=== PATIENT | female | born 1980 | race Caucasian/White ===

== ENCOUNTER 2017-03-01 07:57 | Day surgery (SDC) | payer BC ==
[~2017-03-01 07:57] MED LIST: Dexamethasone 4 MG/ML 5 ML MDV ONE; Lactated Ringers 1,000 ML IV SCH; Lidocaine 1% 20 ML MDV ONE; Midazolam 1 MG/ML 2 ML SDV ONE; Ondansetron 4 MG/2 ML SDV ONE; Propofol 200 MG/20 ML SDV ONE; ceFAZolin 2 GM in Premix Bag 1 BAG IV SCH; fentaNYL 100 MCG/2 ML SDV ONE
[2017-03-01] MEDS ORDERED: Acetaminophen/HYDROcodone 325-5 MG Tab PO PRN (08:00)
--- NOTE | 2017-03-01 09:12 | PCM.PREANE ---
Preanesthetic Assessment - Anesthesia/Transfusion/Family Hx Anesthesia History: Prior Anesthesia Without Reaction Other Type of Anesthesia Reaction Comment: Denies any known problems in past Family History of Anesthesia Reaction: No Transfusion History: No Prior Transfusion(s) - Review of Systems Pulmonary: No Symptoms Cardiovascular: No Symptoms Gastrointestinal: No Symptoms, Other (reflux symptoms controlled on medication but hasn't taken today) Other: Reports: None - Physical Assessment NPO Status Date: 02/28/17 NPO Status Time: 22:00 O2 Sat by Pulse Oximetry: 96 Respiratory Rate: 16 Vital Signs: Last Vital Signs Temp 36.5 C 03/01/17 08:29 Pulse 77 03/01/17 08:29 Resp 16 03/01/17 08:29 BP 121/79 03/01/17 08:29 Pulse Ox 96 03/01/17 08:29 Height: 1.57 m Weight: 95.254 kg ASA Class: 2 Mental Status: Alert & Oriented x3 Dentition: Reports: Normal Dentition (missing tooth upper left) Thyro-Mental Finger Breadths: 3 Mouth Opening Finger Breadths: 2 ROM/Head Extension: Full Lungs: Clear to Auscultation Cardiovascular: Regular Rate - Allergies Allergies/Adverse Reactions: Allergies Allergy/AdvReac Type Severity Reaction Status Date / Time blueberry [Blueberry] Allergy Difficulty Verified 07/01/14 07:18 Breathing latex Allergy Difficulty Verified 07/01/14 07:18 Breathing Sulfa (Sulfonamide Allergy Difficulty Verified 07/01/14 07:18 Antibiotics) Breathing Tape adhesives Allergy Swelling Uncoded 07/01/14 07:18 - Acknowledgements Anesthesia Type Planned: General Anesthesia (patient prefers ga over spinal) Pt an Appropriate Candidate for the Planned Anesthesia: Yes Alternatives and Risks of Anesthesia Discussed w Pt/Guardian: Yes Pt/Guardian Understands and Agrees with Anesthesia Plan: Yes PreAnesthesia Questionnaire HEENT History: Reports: Other (See Below) Other HEENT History: wears glasses/contacts Cardiovascular History: Reports: None Respiratory History: Reports: None Gastrointestinal History: Reports: GERD Genitourinary History: Reports: Renal Calculus 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, Musculoskeletal History: Reports: Fibromyalgia Neurological History: Reports: None Psychiatric History: Reports: Anxiety Endocrine/Metabolic History: Reports: Hypothyroidism, Obesity/BMI 30+ Hematologic History: Reports: None Immunologic History: Reports: None Oncologic (Cancer) History: Reports: None Dermatologic History: Reports: None - Past Surgical History Head Surgeries/Procedures: Reports: None HEENT Surgical History: Reports: Tonsillectomy Female Surgical History: Reports: D&C, Hysterectomy, Tubal Ligation - SUBSTANCE USE Smoking Status *Q: Never Smoker Tobacco Use Within Last Twelve Months: No Second Hand Smoke Exposure: No Days Per Week of Alcohol Use: 2 Number of Drinks Per Day: 6 Total Drinks Per Week: 12 Recreational Drug Use History: No - HOME MEDS Home Medications: Home Meds Levothyroxine Sodium [Synthroid] 75 mcg PO ACBRK 02/25/14 [History] Vitamin B Complex 1 tab PO DAILY 05/08/14 [History] Acyclovir 1 tab PO ASDIRECTED PRN 02/15/16 [History] Omeprazole 20 mg PO DAILY 02/15/16 [History] Gluc/Timur-Msm#2/C/D3/Ronn/Born [Eoguqepqsr-Zjwzpveumts-MSW] 1 tab PO DAILY 02/22 [History] Phentermine HCl 37.5 mg PO ASDIRECTED 02/22/17 [History] - CURRENT (IN HOUSE) MEDS Current Meds: Current Medications Hydrocodone Bitart/Acetaminophen ([place] 325-5 Mg) 1 - 2 tab PO Q4H PRN PRN Reason: Pain Cefazolin Sodium/Dextrose 2 gm (/ Premix) 50 mls @ 100 mls/hr IV ONCALL NEGRO Lactated Ringer's (Ringers, Lactated) 1,000 mls @ 100 mls/hr IV ASDIRECTED [facility] Last Admin: 03/01/17 08:14 Dose: 100 mls/hr Discontinued Medications Dexamethasone (Dexamethasone) Confirm Administered Dose 20 mg .ROUTE .STK-MED ONE Stop: 03/01/17 07:23 Fentanyl (Sublimaze) Confirm Administered Dose 100 mcg .ROUTE .STK-MED ONE Stop: 03/01/17 07:22 Lidocaine HCl (Xylocaine-Mpf 1%) Confirm Administered Dose 5 ml .ROUTE .STK-MED ONE Stop: 03/01/17 07:23 Lidocaine HCl (Xylocaine 1%) Confirm Administered Dose 20 ml .ROUTE .STK-MED ONE Stop: 03/01/17 07:30 Midazolam HCl (Versed 1 Mg/Ml) Confirm Administered Dose 2 mg .ROUTE .STK-MED ONE Stop: 03/01/17 07:23 Ondansetron HCl (Zofran) Confirm Administered Dose 4 mg .ROUTE .STK-MED ONE Stop: 03/01/17 07:23 Propofol (Diprivan 20 Ml) Confirm Administered Dose 200 mg .ROUTE .STK-MED ONE Stop: 03/01/17 07:22
[2017-03-01] MEDS ORDERED: ceFAZolin 1 GM Vial ONE (09:51)
[2017-03-01] MEDS ORDERED: Succinylcholine/Normal Saline 200 MG/10 ML Syringe ONE (09:51)
[2017-03-01] MEDS ORDERED: Rocuronium 10 MG/ML 10 ML Syringe ONE (09:51)
[2017-03-01] MEDS ORDERED: fentaNYL 100 MCG/2 ML SDV ONE (10:11)
--- NOTE | 2017-03-01 10:26 | PCM.OPNOTE ---
- General Post-Op/Procedure Note Date of Surgery/Procedure: 03/01/17 Operative Procedure(s): Right knee arthroscopy with limited synovectomy Post-Op Diagnosis: R knee fat pad impingement Anesthesia Technique: General LMA Primary Surgeon: Kristy Davis Acetylene Operator: Ros Valero in mLs: 5 Condition: Good Free Text/Narrative:: tt=9 min #[id number]
[2017-03-01] MEDS: fentaNYL 100 MCG/2 ML SDV IVPUSH PRN ×2 (10:38→10:44)
--- NOTE | 2017-03-01 10:52 | PCM.POSTAN ---
POST ANESTHESIA ASSESSMENT - MENTAL STATUS Mental Status: Alert - RESPIRATORY Respiratory Status: Respiratory Rate WNL, Airway Patent, O2 Saturation Stable - CARDIOVASCULAR CV Status: Pulse Rate WNL, Blood Pressure Stable - GASTROINTESTINAL GI Status: Nauseau (slight but getting better) - PAIN Pain Score: 5 - POST OP HYDRATION Hydration Status: Adequate & Stable - OBSERVATIONS Free Text/Narrative:: Patient is doing well per RN and ready to go back to room
--- NOTE | 2017-03-01 11:39 | PCM48HPAN ---
Post Anesthesia Note - EVALUATION WITHIN 48HRS OF ANESTHETIC Vital Signs in Normal Range: Yes Patient Participated in Evaluation: Yes Respiratory Function Stable: Yes Airway Patent: Yes Cardiovascular Function Stable: Yes Hydration Status Stable: Yes Pain Control Satisfactory: No (Patient just medicated with po pain med per RN) Nausea and Vomiting Control Satisfactory: Yes Mental Status Recovered: Yes
[2017-03-01 12:35] VITALS: BP 112/72
--- NOTE | 2017-03-01 15:25 | OR ---
SURGEON: Kristy Davis MD DATE OF PROCEDURE: 03/01/2017 PREOPERATIVE DIAGNOSIS: Right knee pain. POSTOPERATIVE DIAGNOSIS: Right knee fat pad impingement. PROCEDURE PERFORMED: Right knee arthroscopy with limited synovectomy. UROLOGIST PHYSICIAN: Ros Valero PA-C. ANESTHESIA: General. ESTIMATED BLOOD LOSS: 5 mL. TOURNIQUET TIME: 9 minutes. COMPLICATIONS: None. DVT PROPHYLAXIS: Not indicated. IMPLANTS USED: None. BRIEF HISTORY: Tiffany is a 36-year-old female who injured her right knee while skiing this past winter. She has had complaint of continued pain in the knee. Due to her lack of response to conservative treatment, I did recommend surgical intervention. The risks and goals of the procedure were discussed with the patient and were documented preoperatively. She agreed to proceed. DESCRIPTION OF PROCEDURE: The patient was properly identified and brought to the operating room. She was transferred from the OR cart and placed on the operating table in supine position. General anesthesia was administered. After adequate anesthesia was obtained, a well-padded tourniquet was applied to the right lower extremity. The right lower extremity was then prepped in standard fashion using ChloraPrep solution. It was then sterilely draped. A time-out was performed to ensure correct site and procedure. Preoperative antibiotics were given. The surgical site had been marked preoperatively. An Esmarch was used to exsanguinate the right lower extremity and the tourniquet was inflated to 250 mmHg. A lateral portal arthrotomy was established. Blunt trocar and cannula were introduced into the suprapatellar pouch. Camera, inflow, and outflow were assembled. The suprapatellar pouch showed no signs of synovitis. The patellofemoral joint was visualized. The joint surfaces appeared pristine. The patella appeared to track centrally. There was fat pad that it did appear to have some impingement within the patellofemoral joint. I then extended down the lateral and medial gutter. No loose bodies were identified. I then entered the medial compartment. A medial portal arthrotomy was established. A blunt probe was inserted. The meniscus was extensively probed. No tearing of the meniscus was noted. The joint surfaces appeared pristine. I then entered the notch. Both the ACL and PCL were visualized and probed and found to be intact. I finally entered the lateral compartment. The lateral meniscus was probed and no tearing was noted. There was a stellate fissure present along the lateral tibial plateau. No instability was noted with this and there was no cartilage loss. The lateral femoral condyle showed no degenerative findings. I then re-entered the patellofemoral joint. A portion of the fat pad was excised. No further impingement was noted. The instruments were then removed from the knee. The portal sites were closed with 3-0 nylon. Lidocaine 1% was injected along the portal tracts. Xeroform gauze was placed over the wound and a bulky dressing was applied. The tourniquet was then deflated. She was awakened from her anesthetic and transferred back to the operating room cart. She was brought to recovery room in stable condition. All needle and sponge counts were correct. STEVE / KENNEDI /[id number]
== END 2017-03-01 12:30 | disposition home or self-care (01) ==
LOC: MW.SDS 07:57
PROVIDERS: ATTEND Orthopaedic Surgery
DX: M79.4 Hypertrophy of (infrapatellar) fat pad (principal); M65.861 Other synovitis and tenosynovitis, right lower leg; F41.9 Anxiety disorder, unspecified; E03.9 Hypothyroidism, unspecified; E66.01 Morbid (severe) obesity due to excess calories; M79.7 Fibromyalgia; Z88.2 Allergy status to sulfonamides; Z91.018 Allergy to other foods; Z91.040 Latex allergy status; Z79.899 Other long term (current) drug therapy; Z87.442 Personal history of urinary calculi; Z87.891 Personal history of nicotine dependence; Z98.51 Tubal ligation status; Z90.710 Acquired absence of both cervix and uterus; Z90.89 Acquired absence of other organs; Z98.890 Other specified postprocedural states
CPT/HCPCS: 29875; 88304; A9270; J0690; J1100; J2250; J2405; J3010; J7120; 01400; J2704

== ENCOUNTER 2017-06-01 00:30 | Emergency (ER) | payer BC ==
[2017-06-01 00:44] VITALS: BP 125/84
[2017-06-01] MEDS ORDERED: Ketorolac 60 MG/2 ML SDV IM ONE (00:51)
[2017-06-01] MEDS ORDERED: Phenazopyridine 200 MG Tab PO ONE (00:51)
--- NOTE | 2017-06-01 00:52 | EDM.PDOC ---
ED HPI GENERAL MEDICAL PROBLEM - General Chief Complaint: Flank Pain Stated Complaint: STOMACH/BACK PAIN Time Seen by Provider: 06/01/17 00:49 - History of Present Illness INITIAL COMMENTS - FREE TEXT/NARRATIVE: HISTORY AND PHYSICAL: History of present illness: Patient 37-year-old female was recently diagnosed urinary tract infection presents with concern of abdominal pain she states she took a old prescription of oxycodone and Motrin been no fever chills nausea vomiting or other complaints. Review of systems: As per history of present illness and below otherwise all systems reviewed and negative. Past medical history: As per history of present illness and as reviewed below otherwise noncontributory. Surgical history: As per history of present illness and as reviewed below otherwise noncontributory. Social history: No reported history of drug or alcohol abuse. Family history: As per history of present illness and as reviewed below otherwise noncontributory. Physical exam: HEENT: Atraumatic, normocephalic, pupils reactive, negative for conjunctival pallor or scleral icterus, mucous membranes moist, throat clear, neck supple, nontender, trachea midline. Lungs: Clear to auscultation, breath sounds equal bilaterally, chest nontender. Heart: S1S2, regular, negative for clicks, rubs, or JVD. Abdomen: Soft, nondistended, nontender. Negative for masses or hepatosplenomegaly. Negative for costovertebral tenderness. Pelvis: Stable nontender. Genitourinary: Deferred. Rectal: Deferred. Extremities: Atraumatic, negative for cords or calf pain. Neurovascular unremarkable. Neuro: Awake, alert, oriented. Cranial nerves II through XII unremarkable. Cerebellum unremarkable. Motor and sensory unremarkable throughout. Exam nonfocal. Diagnostics: UBC CMP UA Therapeutics: Toradol 60 mg IM Pyridium 200 mg by mouth Impression: #1 urinary tract infection Definitive disposition and diagnosis as appropriate pending reevaluation and review of above. bilateral flank Pain Score (Numeric/FACES): 10 - Related Data Allergies Allergy/AdvReac Type Severity Reaction Status Date / Time blueberry [Blueberry] Allergy Difficulty Verified 06/01/17 00:39 Breathing latex Allergy Difficulty Verified 06/01/17 00:39 Breathing Sulfa (Sulfonamide Allergy Difficulty Verified 06/01/17 00:39 Antibiotics) Breathing Tape adhesives Allergy Swelling Uncoded 06/01/17 00:39 Home Meds: Home Meds Levothyroxine Sodium [Synthroid] 75 mcg PO ACBRK 02/25/14 [History] Vitamin B Complex 1 tab PO DAILY 05/08/14 [History] Acyclovir 1 tab PO ASDIRECTED PRN 02/15/16 [History] Omeprazole 20 mg PO DAILY 02/15/16 [History] Ciprofloxacin HCl [Cipro] 500 mg PO BID 06/01/17 [History] Past Medical History HEENT History: Reports: Other (See Below) Other HEENT History: wears glasses/contacts Cardiovascular History: Reports: None Respiratory History: Reports: None Gastrointestinal History: Reports: GERD Genitourinary History: Reports: Renal Calculus 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, Musculoskeletal History: Reports: Fibromyalgia Neurological History: Reports: None Psychiatric History: Reports: Anxiety Endocrine/Metabolic History: Reports: Hypothyroidism, Obesity/BMI 30+ Hematologic History: Reports: None Immunologic History: Reports: None Oncologic (Cancer) History: Reports: None Dermatologic History: Reports: None - Past Surgical History Head Surgeries/Procedures: Reports: None HEENT Surgical History: Reports: Tonsillectomy Female Surgical History: Reports: D&C, Hysterectomy, Tubal Ligation Social & Family History - Tobacco Use Smoking Status *Q: Never Smoker Years of Tobacco use: 0 Second Hand Smoke Exposure: No - Alcohol Use Days Per Week of Alcohol Use: 2 Number of Drinks Per Day: 6 Total Drinks Per Week: 12 - Recreational Drug Use Recreational Drug Use: No Drug Use in Last 12 Months: No ED ROS GENERAL - Review of Systems Review Of Systems: ROS reveals no pertinent complaints other than HPI. ED EXAM, GENERAL - Physical Exam Exam: See Below (See dictation) Course - Vital Signs Last Recorded V/S: Last Vital Signs Temp 36.2 C 06/01/17 00:41 Pulse 89 06/01/17 00:41 Resp 18 06/01/17 00:41 BP 125/84 06/01/17 00:41 Pulse Ox 98 06/01/17 00:41 - Orders/Labs/Meds Orders: Active Orders 24 hr Category Date Time Status CBC WITH AUTO DIFF [HEME] Stat Lab 06/01/17 00:48 Ordered CMP [COMPREHENSIVE METABOLIC PN,CMP] [CHEM] Stat Lab 06/01/17 00:48 Ordered UA W/MICROSCOPIC [URIN] Stat Lab 06/01/17 00:45 Ordered Departure - Departure Time of Disposition: 00:51 Disposition: Home, Self-Care 01 Condition: Good Clinical Impression: UTI, Urinary tract infectious disease - Discharge Information Referrals: Sameer Clark MD [Primary Care Provider] - Additional Instructions: The following information is given to patients seen in the emergency department who are being discharged to home. This information is to outline your options for follow-up care. We provide all patients seen in our emergency department with a follow-up referral. The need for follow-up, as well as the timing and circumstances, are variable depending upon the specifics of your emergency department visit. If you don't have a primary care physician on staff, we will provide you with a referral. We always advise you to contact your personal physician following an emergency department visit to inform them of the circumstance of the visit and for follow-up with them and/or the need for any referrals to a consulting specialist. The emergency department will also refer you to a specialist when appropriate. This referral assures that you have the opportunity for followup care with a specialist. All of these measure are taken in an effort to provide you with optimal care, which includes your followup. Under all circumstances we always encourage you to contact your private physician who remains a resource for coordinating your care. When calling for followup care, please make the office aware that this follow-up is from your recent emergency room visit. If for any reason you are refused follow-up, please contact the [facility] emergency department at and asked to speak to the emergency department charge nurse. Continue current medications as prescribed follow-up primary medical doctor wanted today's return as needed as discussed - My Orders Last 24 Hours: My Active Orders 06/01/17 00:45 UA W/MICROSCOPIC [URIN] Stat 06/01/17 00:48 CBC WITH AUTO DIFF [HEME] Stat CMP [COMPREHENSIVE METABOLIC PN,CMP] [CHEM] Stat - Assessment/Plan Last 24 Hours: My Active Orders 06/01/17 00:45 UA W/MICROSCOPIC [URIN] Stat 06/01/17 00:48 CBC WITH AUTO DIFF [HEME] Stat CMP [COMPREHENSIVE METABOLIC PN,CMP] [CHEM] Stat
[2017-06-01 01:23] LABS: CHLORIDE,CL 107 mmol/L (98-110); SODIUM,NA 142 mmol/L (136-146)
[2017-06-01] MEDS ORDERED: Ondansetron 4 MG Tab.DIS PO ONE (02:03)
== END 2017-06-01 02:12 | disposition home or self-care (01) ==
LOC: MW.ED 00:30
DX: N39.0 Urinary tract infection, site not specified (principal); K21.9 Gastro-esophageal reflux disease without esophagitis; E03.9 Hypothyroidism, unspecified; Z79.899 Other long term (current) drug therapy; Z88.2 Allergy status to sulfonamides; Z91.040 Latex allergy status; Z91.048 Other nonmedicinal substance allergy status; Z91.018 Allergy to other foods
CPT/HCPCS: 36415; 80053; 81001; 85025; 96372; 99284; A9270; J1885; 99283

== ENCOUNTER 2019-09-18 06:39 | Emergency (ER) | payer BC, OTHER ==
--- NOTE | 2019-09-18 07:34 | EDM.PDOC ---
ED HPI GENERAL MEDICAL PROBLEM - General Chief Complaint: Respiratory Problem Stated Complaint: SICK, FEVER, CHILLS Time Seen by Provider: 09/18/19 07:19 Source of Information: Reports: Patient History Limitations: Reports: No Limitations - History of Present Illness INITIAL COMMENTS - FREE TEXT/NARRATIVE: This 39 year old female is admitted to the ED with a chief complaint of coughing that is non-productive with fever and chills for 4 days. She also complains of a sore throat. She states that she feels somewhat weak. She denies any other symptoms at this time. Onset: Gradual (four days) Severity: Mild Improves with: Reports: None Worsens with: Reports: None - Related Data Allergies Allergy/AdvReac Type Severity Reaction Status Date / Time blueberry [Blueberry] Allergy Difficulty Verified 09/18/19 06:52 Breathing latex Allergy Difficulty Verified 09/18/19 06:52 Breathing Sulfa (Sulfonamide Allergy Difficulty Verified 09/18/19 06:52 Antibiotics) Breathing Tape adhesives Allergy Swelling Uncoded 09/18/19 06:52 Home Meds: Home Meds Levothyroxine Sodium [Synthroid] 75 mcg PO ACBRK 02/25/14 [History] Vitamin B Complex 1 tab PO DAILY 05/08/14 [History] Acyclovir 1 tab PO ASDIRECTED PRN 02/15/16 [History] Omeprazole 20 mg PO DAILY 02/15/16 [History] Benzonatate 100 mg PO BID 5 Days #10 capsule 09/18/19 [Rx] Past Medical History HEENT History: Reports: Other (See Below) Other HEENT History: wears glasses/contacts Cardiovascular History: Reports: None Respiratory History: Reports: None Gastrointestinal History: Reports: GERD Genitourinary History: Reports: Renal Calculus [employer]HE[employer] History: Reports: Endometriosis, Musculoskeletal History: Reports: Fibromyalgia Neurological History: Reports: None Psychiatric History: Reports: Anxiety Endocrine/Metabolic History: Reports: Hypothyroidism, Obesity/BMI 30+ Hematologic History: Reports: None Immunologic History: Reports: None Oncologic (Cancer) History: Reports: None Dermatologic History: Reports: None - Infectious Disease History Infectious Disease History: Reports: Chicken Pox - Past Surgical History Head Surgeries/Procedures: Reports: None HEENT Surgical History: Reports: Tonsillectomy Female Surgical History: Reports: D&C, Hysterectomy, Tubal Ligation Social & Family History - Family History Family Medical History: Noncontributory - Tobacco Use Smoking Status *Q: Never Smoker - Caffeine Use Caffeine Use: Reports: Coffee, Energy Drinks, Soda - Recreational Drug Use Recreational Drug Use: No ED ROS GENERAL - Review of Systems Review Of Systems: See Below Constitutional: Reports: No Symptoms HEENT: Reports: No Symptoms Respiratory: Reports: Cough Cardiovascular: Reports: No Symptoms Endocrine: Reports: No Symptoms GI/Abdominal: Reports: Nausea (very mild) : Reports: No Symptoms Musculoskeletal: Reports: No Symptoms Skin: Reports: No Symptoms Neurological: Reports: No Symptoms ED EXAM, GENERAL - Physical Exam Exam: See Below Exam Limited By: No Limitations General Appearance: Alert, WD/WN, No Apparent Distress Ears: Normal External Exam, Normal Canal, Hearing Grossly Normal, Normal TMs Ear Exam: Bilateral Ear: Auricle Normal, Canal Normal, TM normal Nose: Normal Inspection, Normal Mucosa, No Blood Throat/Mouth: Normal Lips, Normal Teeth, Normal Voice, Other (posterior pharynx is slightly injected) Head: Atraumatic, Normocephalic Neck: Normal Inspection, Supple, Non-Tender, Full Range of Motion. No: Lymphadenopathy (L), Lymphadenopathy (R) Respiratory/Chest: No Respiratory Distress, Lungs Clear, Normal Breath Sounds, Chest Non-Tender Cardiovascular: Normal Peripheral Pulses, Regular Rate, Rhythm, No Gallop, No JVD, No Murmur GI/Abdominal: Normal Bowel Sounds, Soft, Non-Tender, No Organomegaly, No Distention, No Abnormal Bruit, No Mass (Female) Exam: Deferred Rectal (Female) Exam: Deferred Back Exam: Normal Inspection, Full Range of Motion Extremities: Normal Inspection, Normal Range of Motion, Normal Capillary Refill Neurological: Alert, Oriented, CN II-XII Intact, Normal Cognition, Normal Reflexes, No Motor/Sensory Deficits Psychiatric: Normal Affect, Normal Mood Skin Exam: Warm, Dry, Intact, Normal Color, No Rash Lymphatic: No Adenopathy Course - Vital Signs Text/Narrative:: I discussed with the patient all of her diagnostic test including her chest x- ray which was negative. She will be discharged. No work for two days. She agrees with the discharge plan. Last Recorded V/S: Last Vital Signs Temp 97.1 F 09/18/19 08:12 Pulse 79 09/18/19 08:12 Resp 18 09/18/19 08:12 BP 109/69 09/18/19 08:12 Pulse Ox 97 09/18/19 08:12 - Orders/Labs/Meds Orders: Active Orders 24 hr Category Date Time Status Chest 2V [CR] Stat Exams 09/18/19 07:28 Taken COMPREHENSIVE METABOLIC PN,CMP [CHEM] Stat Lab 09/18/19 07:58 Received CULTURE STREP A CONFIRMATION [RM] Stat Lab 09/18/19 07:34 Results STREP SCRN A RAPID W CULT CONF [RM] Stat Lab 09/18/19 07:34 Results Isolation [COMM] Routine Oth 09/18/19 07:22 Active Labs: Laboratory Tests 09/18/19 Range/Units 07:58 WBC 5.95 (4.0-11.0) K/uL RBC 4.50 (4.30-5.90) M/uL Hgb 14.5 (12.0-16.0) g/dL Hct 44.3 (36.0-46.0) % MCV 98.4 H (80.0-98.0) fL MCH 32.2 H (27.0-32.0) pg MCHC 32.7 (31.0-37.0) g/dL RDW Std Deviation 45.7 (28.0-62.0) fl RDW Coeff of Francesca 13 (11.0-15.0) % Plt Count 246 (150-400) K/uL MPV 10.20 (7.40-12.00) fL Neut % (Auto) 60.5 (48.0-80.0) % Lymph % (Auto) 24.4 (16.0-40.0) % [place] % (Auto) 10.6 (0.0-15.0) % Eos % (Auto) 3.0 (0.0-7.0) % Baso % (Auto) 1.5 (0.0-1.5) % Neut # (Auto) 3.6 (1.4-5.7) K/uL Lymph # (Auto) 1.5 (0.6-2.4) K/uL [place] # (Auto) 0.6 (0.0-0.8) K/uL Eos # (Auto) 0.2 (0.0-0.7) K/uL Baso # (Auto) 0.1 (0.0-0.1) K/uL Nucleated RBC % 0.0 /100WBC Nucleated RBCs # 0 K/uL Meds: Medications Discontinued Medications Generic Name Dose Route Start Last Admin Trade Name Rachelle PRN Reason Stop Dose Admin Benzonatate 200 mg 09/18/19 08:24 Abida Hernandez PO 09/18/19 08:25 ONETIME ONE Departure - Departure Time of Disposition: 08:28 Disposition: Home, Self-Care 01 Condition: Good Clinical Impression: Viral syndrome - Discharge Information *PRESCRIPTION DRUG MONITORING PROGRAM REVIEWED*: Yes *COPY OF PRESCRIPTION DRUG MONITORING REPORT IN PATIENT SALVATORE: Yes Instructions: Viral Respiratory Infection, [id number] Referrals: Sameer Clark MD [Primary Care Provider] - Forms: ED Department Discharge, ED Return to Work/School Form Additional Instructions: Take all medications as directed. Follow up with your PCP in the next two to four days. Drink plenty of clear liquids for the next 24-48 hours. Rest for the next 24 hours. Return to the ED if your condition gets worse or should you have any questions or concerns. The following information is given to patients seen in the emergency department who are being discharged to home. This information is to outline your options for follow-up care. We provide all patients seen in our emergency department with a follow-up referral. The need for follow-up, as well as the timing and circumstances, are variable depending upon the specifics of your emergency department visit. If you don't have a primary care physician on staff, we will provide you with a referral. We always advise you to contact your personal physician following an emergency department visit to inform them of the circumstance of the visit and for follow-up with them and/or the need for any referrals to a consulting specialist. The emergency department will also refer you to a specialist when appropriate. This referral assures that you have the opportunity for follow-up care with a specialist. All of these measure are taken in an effort to provide you with optimal care, which includes your follow-up. Under all circumstances we always encourage you to contact your private physician who remains a resource for coordinating your care. When calling for follow-up care, please make the office aware that this follow-up is from your recent emergency room visit. If for any reason you are refused follow-up, please contact the [facility] Emergency Department at and asked to speak to the emergency department charge nurse. Sepsis Event Note - Evaluation Sepsis Screening Result: No Definite Risk - Focused Exam Vital Signs: Vital Signs Temp Pulse Resp BP Pulse Ox 09/18/19 08:12 97.1 F 79 18 109/69 97 09/18/19 07:30 97.6 F 77 18 109/72 96 09/18/19 06:48 96.8 F L 82 18 111/67 98 Date Exam was Performed: 09/18/19 Time Exam was Performed: 08:26 - My Orders Last 24 Hours: My Active Orders 09/18/19 07:22 Isolation [COMM] Routine 09/18/19 07:28 Chest 2V [CR] Stat 09/18/19 07:34 CULTURE STREP A CONFIRMATION [RM] Stat STREP SCRN A RAPID W CULT CONF [RM] Stat 09/18/19 07:58 COMPREHENSIVE METABOLIC PN,CMP [CHEM] Stat - Assessment/Plan Last 24 Hours: My Active Orders 09/18/19 07:22 Isolation [COMM] Routine 09/18/19 07:28 Chest 2V [CR] Stat 09/18/19 07:34 CULTURE STREP A CONFIRMATION [RM] Stat STREP SCRN A RAPID W CULT CONF [RM] Stat 09/18/19 07:58 COMPREHENSIVE METABOLIC PN,CMP [CHEM] Stat
[2019-09-18] MEDS ORDERED: Benzonatate 100 MG Cap PO ONE (08:24)
[2019-09-18 08:34] LABS: BLOOD UREA NITROGEN,BUN 7 mg/dL (7.0-18.0); CARBON DIOXIDE,CO2 26.1 mmol/L (21.0-32.0); CHLORIDE,CL 104 mmol/L (98-107); GLUCOSE RANDOM 91 mg/dL (74-106); POTASSIUM,K 4.3 mmol/L (3.5-5.1); SODIUM,NA 141 mmol/L (136-145)
--- NOTE | 2019-09-18 08:36 | CR ---
Chest: 2 views of the chest were obtained. Comparison: Prior chest x-ray of 07/01/14. Heart size and mediastinum are normal. Lungs are clear with no acute parenchymal change. Bony structures appear within normal limits. Impression: 1. Nothing acute is appreciated on 2 view chest x-ray. Diagnostic code #1 This report was dictated in MDT
[2019-09-18 08:46] VITALS: BP 108/62; PULSE 80
== END 2019-09-18 08:47 | disposition home or self-care (01) ==
LOC: MW.ED 06:39
DX: B34.9 Viral infection, unspecified (principal); K21.9 Gastro-esophageal reflux disease without esophagitis; E03.9 Hypothyroidism, unspecified; E66.9 Obesity, unspecified; Z68.38 Body mass index [BMI] 38.0-38.9, adult; Z88.2 Allergy status to sulfonamides; Z91.048 Other nonmedicinal substance allergy status; Z91.018 Allergy to other foods; Z91.040 Latex allergy status; Z79.899 Other long term (current) drug therapy
CPT/HCPCS: 36415; 71046; 80053; 85025; 87081; 87804; 87880; 99283; A9270

== ENCOUNTER 2022-09-22 09:49 | Day surgery (SDC) | payer OTHER ==
[~2022-09-22 09:49] MED LIST changes: -Dexamethasone 4 MG/ML 5 ML MDV ONE; -Lidocaine 1% 20 ML MDV ONE; -Midazolam 1 MG/ML 2 ML SDV ONE; -Ondansetron 4 MG/2 ML SDV ONE; -Propofol 200 MG/20 ML SDV ONE; -ceFAZolin 2 GM in Premix Bag 1 BAG IV SCH; -fentaNYL 100 MCG/2 ML SDV ONE
[2022-09-22] MEDS ORDERED: Ondansetron 4 MG/2 ML SDV IVPUSH PRN (09:54)
[2022-09-22] MEDS ORDERED: HYDROmorphone 1 MG/ML Syringe IVPUSH PRN (09:54)
[2022-09-22] MEDS ORDERED: Morphine 2 MG/ML SYRINGE IVPUSH PRN (09:54)
[2022-09-22] MEDS ORDERED: Metoclopramide 10 MG/2 ML SDV IVPUSH PRN (09:54)
[2022-09-22] MEDS ORDERED: Albuterol 0.083% 2.5 MG/3 ML Neb Soln NEB PRN (09:54)
[2022-09-22] MEDS ORDERED: fentaNYL 50 MCG/ML SDV IVPUSH PRN (09:54)
[2022-09-22] MEDS ORDERED: droPERidol 5 MG/2 ML SDV IVPUSH PRN (09:54)
[2022-09-22] MEDS ORDERED: Naloxone 0.4 MG/ML SDV IVPUSH PRN (09:54)
[2022-09-22] MEDS ORDERED: Water For Injection, Sterile 20 ML ONE (10:33)
[2022-09-22] MEDS ORDERED: fentaNYL 100 MCG/2 ML SDV ONE (10:33)
[2022-09-22] MEDS ORDERED: Propofol 200 MG/20 ML SDV ONE (10:33)
[2022-09-22] MEDS ORDERED: Dexmedetomidine 200 MCG/2 ML SDV ONE (10:33)
[2022-09-22] MEDS ORDERED: Dexamethasone 4 MG/ML 5 ML MDV ONE (11:38)
[2022-09-22] MEDS ORDERED: Ondansetron 4 MG/2 ML SDV ONE (11:39)
[2022-09-22] MEDS ORDERED: Ketorolac 30 MG/ML SDV ONE (11:39)
[2022-09-22] MEDS ORDERED: Fluorescein 5 ML Vial ONE (11:52)
[2022-09-22] MEDS ORDERED: Midazolam 1 MG/ML 2 ML SDV IVPUSH ONE (12:45)
[2022-09-22] MEDS ORDERED: Midazolam 1 MG/ML 2 ML SDV ONE (12:50)
[2022-09-22] MEDS ORDERED: Acetaminophen/HYDROcodone 325-5 MG Tab PO ONE (13:35)
[2022-09-22 14:27] VITALS: BP 83/56; PULSE 66
== END 2022-09-22 14:00 | disposition home or self-care (01) ==
LOC: MW.SDS 09:49
PROVIDERS: ATTEND Obstetrics & Gynecology
DX: N39.3 Stress incontinence (female) (male) (principal); F41.9 Anxiety disorder, unspecified; M25.569 Pain in unspecified knee; G89.29 Other chronic pain; M79.7 Fibromyalgia; K21.9 Gastro-esophageal reflux disease without esophagitis; E03.9 Hypothyroidism, unspecified; E66.01 Morbid (severe) obesity due to excess calories; Z88.2 Allergy status to sulfonamides; Z79.890 Hormone replacement therapy; Z79.899 Other long term (current) drug therapy; Z91.040 Latex allergy status; Z68.41 Body mass index [BMI] 40.0-44.9, adult; Z87.891 Personal history of nicotine dependence; Z91.048 Other nonmedicinal substance allergy status; Z98.890 Other specified postprocedural states
CPT/HCPCS: 57288; 81025; A9270; C1771; J0131; J1100; J1885; J2405; J2704; J3010; J7120; 00860; J2250; J3490